=== PATIENT | female | born 1990 | race Caucasian/White ===

== ENCOUNTER → 2017-12-20 | Outpatient (CLI) | payer BC | LOC: LAB 09:56 → LAB SHORT 09:56 | DX: Z34.00 Encounter for supervision of normal first pregnancy, unspecified trimester (principal) | CPT/HCPCS: 87081; 87653 ==

== ENCOUNTER → 2019-09-03 | Outpatient (CLI) | payer OTHER ==
[~2019-09-03] MED LIST: IBUP800 PO; Omeprazole20 M1; Verotin-Gr Cap1 EACH
[2019-09-03 15:48] LABS: BASOPHILS ABSOLUTE AUTO 0.02 K/mm3 (0.00-0.23); BASOPHILS PERCENT AUTO 0 % (0-2); EOSINOPHILS ABSOLUTE AUTO 0.15 K/mm3 (0.00-0.68); EOSINOPHILS PERCENT AUTO 2 % (0-6); Hematocrit 38.2 % (33.0-51.0); Hemoglobin 12.7 g/dL (11.5-16.0); IMMATURE GRAN ABSOLUTE AUTO 0.01 K/mm3 (0.00-0.10); IMMATURE GRAN PERCENT AUTO 0 % (0-1); LYMPHOCYTES ABSOLUTE AUTO 3.55 K/mm3 (0.84-5.20); LYMPHOCYTES PERCENT AUTO 48 % (21-46); MONOCYTES ABSOLUTE AUTO 0.58 K/mm3 (0.16-1.47); MONOCYTES PERCENT AUTO 8 % (4-13); Mean Corpuscular HGB 26.2 pg (26.0-34.0); Mean Corpuscular HGB Conc 33.2 g/dL (31.5-36.5); Mean Corpuscular Volume 79 fL (80-100); Mean Platelet Volume 9.6 fL (9.1-12.4); NEUTROPHILS ABSOLUTE AUTO 3.13 K/mm3 (1.96-9.15); NEUTROPHILS PERCENT AUTO 42 % (41-73); Platelet Count 215 K/mm3 (150-400); RDW Coefficient Variation 13.1 % (11.7-14.2); RDW Standard Deviation 37.3 fL (35.1-46.3); Red Blood Cell Count 4.85 M/mm3 (3.80-5.20); White Blood Cell Count 7.44 K/mm3 (4.00-11.30)
[2019-09-03 16:13] LABS: Alanine Aminotransfer (ALT/SGP 56 U/L (12-78); Albumin, Blood 3.4 g/dL (3.4-5.0); Albumin/Globulin Ratio 1.1 (0.8-1.8); Alk Phos 171 U/L (50-136); Anion Gap 6 mmol/L (6-16); Aspartate Aminotrans (AST/SGOT 18 U/L (12-37); Bilirubin, Total 0.2 mg/dL (0.1-1.0); Blood Urea Nitrogen 11 mg/dL (8-24); Bun/Creatinine Ratio 31.1 (12.0-20.0); CO2, Blood 25 mmol/L (21-32); Calcium, Blood 8.8 mg/dL (8.5-10.1); Chloride, Blood 109 mmol/L (98-108); Creatinine, Blood 0.35 mg/dL (0.40-1.00); Glomerular Filtration Rate >60 (60-); Glucose, Blood 126 mg/dL (70-99); Potassium, Blood 3.6 mmol/L (3.5-5.5); Sodium, Blood 140 mmol/L (136-145); Total Protein, Blood 6.4 g/dL (6.4-8.2)
[2019-09-03 16:16] LABS: Thyroid Stimulating Hormone <0.005 uIU/mL (0.360-4.800)
== END ==
LOC: LAB 14:27 → LAB SHORT 14:27
PROVIDERS: Nurse Practitioner
DX: E05.90 Thyrotoxicosis, unspecified without thyrotoxic crisis or storm (principal); R53.83 Other fatigue
CPT/HCPCS: 80053; 84443; 85025

== ENCOUNTER → 2020-09-24 | Outpatient (CLI) | payer OTHER ==
[~2020-09-24] MED LIST changes: +ASPI81CH PO; +HUMULIN N100 UNIT/5 SC; +IBU800 MG PO
[2020-09-24 15:13] LABS: BASOPHILS ABSOLUTE AUTO 0.04 K/mm3 (0.00-0.23); BASOPHILS PERCENT AUTO 0 % (0-2); EOSINOPHILS ABSOLUTE AUTO 0.13 K/mm3 (0.00-0.68); EOSINOPHILS PERCENT AUTO 1 % (0-6); Hematocrit 39.9 % (33.0-51.0); Hemoglobin 13.2 g/dL (11.5-16.0); IMMATURE GRAN ABSOLUTE AUTO 0.05 K/mm3 (0.00-0.10); IMMATURE GRAN PERCENT AUTO 0 % (0-1); LYMPHOCYTES ABSOLUTE AUTO 2.85 K/mm3 (0.84-5.20); LYMPHOCYTES PERCENT AUTO 23 % (21-46); MONOCYTES ABSOLUTE AUTO 0.78 K/mm3 (0.16-1.47); MONOCYTES PERCENT AUTO 6 % (4-13); Mean Corpuscular HGB 27.3 pg (26.0-34.0); Mean Corpuscular HGB Conc 33.1 g/dL (31.5-36.5); Mean Corpuscular Volume 82 fL (80-100); Mean Platelet Volume 9.7 fL (9.1-12.4); NEUTROPHILS ABSOLUTE AUTO 8.59 K/mm3 (1.96-9.15); NEUTROPHILS PERCENT AUTO 69 % (41-73); Platelet Count 240 K/mm3 (150-400); RDW Coefficient Variation 13.3 % (11.7-14.2); RDW Standard Deviation 39.6 fL (35.1-46.3); Red Blood Cell Count 4.84 M/mm3 (3.80-5.20); White Blood Cell Count 12.44 K/mm3 (4.00-11.30)
== END | disposition home or self-care (01) ==
LOC: LAB SHORT 14:11
PROVIDERS: Obstetrics & Gynecology
DX: O09.91 Supervision of high risk pregnancy, unspecified, first trimester (principal)
CPT/HCPCS: 82950; 85025

== ENCOUNTER 2020-11-17 15:04 | Inpatient (IN) | payer OTHER ==
[~2020-11-17] VITALS: Ht 157.5 cm; Wt 91.8 kg
[~2020-11-17 15:04] MED LIST changes: -ASPI81CH PO; -HUMULIN N100 UNIT/5 SC; -IBU800 MG PO
[2020-11-17 16:06] LABS: BASOPHILS ABSOLUTE AUTO 0.07 K/mm3 (0.00-0.23); BASOPHILS PERCENT AUTO 0 % (0-2); EOSINOPHILS ABSOLUTE AUTO 0.06 K/mm3 (0.00-0.68); EOSINOPHILS PERCENT AUTO 0 % (0-6); Hematocrit 42.5 % (33.0-51.0); Hemoglobin 14.6 g/dL (11.5-16.0); IMMATURE GRAN ABSOLUTE AUTO 0.08 K/mm3 (0.00-0.10); IMMATURE GRAN PERCENT AUTO 0 % (0-1); LYMPHOCYTES ABSOLUTE AUTO 3.14 K/mm3 (0.84-5.20); LYMPHOCYTES PERCENT AUTO 17 % (21-46); MONOCYTES ABSOLUTE AUTO 0.87 K/mm3 (0.16-1.47); MONOCYTES PERCENT AUTO 5 % (4-13); Mean Corpuscular HGB Conc 34.4 g/dL (31.5-36.5); Mean Corpuscular Volume 81 fL (80-100); Mean Platelet Volume 10.1 fL (9.1-12.4); NEUTROPHILS ABSOLUTE AUTO 14.47 K/mm3 (1.96-9.15); NEUTROPHILS PERCENT AUTO 77 % (41-73); Platelet Count 244 K/mm3 (150-400); RDW Coefficient Variation 13.7 % (11.7-14.2); RDW Standard Deviation 40.3 fL (35.1-46.3); Red Blood Cell Count 5.22 M/mm3 (3.80-5.20); White Blood Cell Count 18.69 K/mm3 (4.00-11.30)
[2020-11-17 16:15] LABS: Influenza A, PCR NEGATIVE (NEGATIVE); Influenza B, PCR NEGATIVE (NEGATIVE); Resp Syncytial Virus, PCR NEGATIVE (NEGATIVE); SARS-Cov-2 (COVID-19) PCR, MMC NEGATIVE (NEGATIVE)
[2020-11-17] MEDS ORDERED: ASPI81CH PO (16:24)
[2020-11-17] MEDS ORDERED: HUMULIN N100 UNIT/5 SC (16:26)
[2020-11-18 05:19] LABS: Hematocrit 37.1 % (33.0-51.0); Hemoglobin 12.4 g/dL (11.5-16.0); Mean Corpuscular HGB 27.8 pg (26.0-34.0); Mean Corpuscular HGB Conc 33.4 g/dL (31.5-36.5); Mean Corpuscular Volume 83 fL (80-100); Platelet Count 193 K/mm3 (150-400); RDW Coefficient Variation 13.7 % (11.7-14.2); RDW Standard Deviation 41.4 fL (35.1-46.3); Red Blood Cell Count 4.46 M/mm3 (3.80-5.20); White Blood Cell Count 16.26 K/mm3 (4.00-11.30)
--- NOTE | 2020-11-19 09:00 | NUR ---
RN/LC ROUNDED TO HELP W/ . PT IS EXPERIENCED MOM, STATES LATCHING HAS BEEN PAINFUL. INSTRUCT/DEMO WIDENING LATCH, CORRECT POSITIONING, AND NIPPLE SHAPE AFTER FEEDS. NB AT END OF FEED, SMALL COMPRESSION STRIP ON TIP OF NIPPLE. FURTHER LC OFFERED IF PT DESIRES.
[2020-11-19] MEDS ORDERED: IBU800 MG PO (09:17)
== END 2020-11-19 11:35 | disposition home or self-care (01) | DRG 806 ==
LOC: OBS 15:04 → BC 15:04 → OBS 15:36 → BC 15:38
PROVIDERS: ADMIT Obstetrics & Gynecology
PROC: 10E0XZZ Delivery of Products of Conception, External Approach (ICD-10-PCS; principal; 2020-11-17)
PROC: 0UQG7ZZ Repair Vagina, Via Natural or Artificial Opening (ICD-10-PCS; 2020-11-17)
PROC: 00HU33Z Insertion of Infusion Device into Spinal Canal, Percutaneous Approach (ICD-10-PCS; 2020-11-17)
PROC: 3E0R3BZ Introduction of Anesthetic Agent into Spinal Canal, Percutaneous Approach (ICD-10-PCS; 2020-11-17)
DX: O60.14X0 Preterm labor third trimester with preterm delivery third trimester, not applicable or unspecified (principal); O71.4 Obstetric high vaginal laceration alone; Z37.0 Single live birth; O40.3XX0 Polyhydramnios, third trimester, not applicable or unspecified; O24.424 Gestational diabetes mellitus in childbirth, insulin controlled; O99.824 Streptococcus B carrier state complicating childbirth; Z20.822 Contact with and (suspected) exposure to COVID-19; Z3A.36 36 weeks gestation of pregnancy; O99.284 Endocrine, nutritional and metabolic diseases complicating childbirth; E05.00 Thyrotoxicosis with diffuse goiter without thyrotoxic crisis or storm
CPT/HCPCS: 0241U; 36415; 36416; 51702; 82947; 85025; 85027; 86850; 86900; 86901; A9270; J0290; J1885; J2001; J2210; J2590; J3010; J7120

== ENCOUNTER 2021-11-22 16:46 | Inpatient (IN) | payer BC ==
[~2021-11-22] VITALS: Ht 157.5 cm; Wt 62.9 kg
[~2021-11-22 16:46] MED LIST changes: -METHI10 PO
[2021-11-22 17:17] LABS: Base Excess Venous -13.7 mmol/L; Bicarbonate Venous 15.3 mmol/L (24.0-30.0); PCO2 Venous 28.8 mmHg (38-42); PO2 Venous 98.6 mmHg (38-42)
[2021-11-22 17:18] LABS: pH Blood Venous 7.27 (7.34-7.37)
--- NOTE | 2021-11-22 18:52 | NUR ---
BREAST PUMP BROUGHT UP TO PT AND INSTRUCTIONS WERE GIVEN ON HOW TO USE. BREAST MILK STORAGE BAGS ALSO GIVEN TO PT. DISCUSSED PROPER STORAGE OF BREASTMILK. PT VERBALIZED UNDERSTANDING TO BREAST PUMP INSTRUCTIONS.
[2021-11-22 19:11] LABS: Anion Gap 23 mmol/L (6-16); Blood Urea Nitrogen 9 mg/dL (8-24); CO2, Blood 13 mmol/L (21-32); Calcium, Blood 9.4 mg/dL (8.5-10.1); Chloride, Blood 95 mmol/L (98-108); Glomerular Filtration Rate >60 (60-); Glucose, Blood 462 mg/dL (70-99); Potassium, Blood 3.4 mmol/L (3.5-5.5); Sodium, Blood 131 mmol/L (136-145)
[2021-11-22] MEDS ORDERED: METHI10 PO (21:15)
[2021-11-22 21:43] LABS: Ketones, Urine 4+ (Neg)
--- NOTE | 2021-11-22 23:16 | NUR ---
ASSUMED CARE: PT ARRIVED FROM ED 2/2 DKA; CBG 288 UPON ARRIVAL; 20 MEQ KCL IN NS RUNNING AT 250ML/HR UPON ARRIVAL. INSULIN GTT STARTED UPON ARRIVAL TO ICU AT 1U/HR. A/O X 4, ABLE TO MAKE NEEDS KNOWN, CALL LIGHT WITHIN REACH, MOTHER AT BEDSIDE. PT 1YR & EXCLUSIVELY . HOSPITAL PUMP PROVIDED TO PT BY L&D. PT DECLINES TO PUMP TONIGHT. SEE SHIFT ASSESSMENT FOR FURTHER DETAILS.
[2021-11-23 00:47] LABS: Anion Gap 12 mmol/L (6-16); Blood Urea Nitrogen 5 mg/dL (8-24); Bun/Creatinine Ratio 10.8 (12.0-20.0); CO2, Blood 15 mmol/L (21-32); Chloride, Blood 112 mmol/L (98-108); Creatinine, Blood 0.46 mg/dL (0.40-1.00); Glomerular Filtration Rate >60 (60-); Glucose, Blood 254 mg/dL (70-99); Potassium, Blood 3.3 mmol/L (3.5-5.5); Sodium, Blood 139 mmol/L (136-145)
[2021-11-23 04:34] LABS: BASOPHILS ABSOLUTE AUTO 0.06 K/mm3 (0.00-0.23); BASOPHILS PERCENT AUTO 1 % (0-2); EOSINOPHILS ABSOLUTE AUTO 0.21 K/mm3 (0.00-0.68); EOSINOPHILS PERCENT AUTO 2 % (0-6); Hematocrit 41.5 % (33.0-51.0); Hemoglobin 14.2 g/dL (11.5-16.0); Mean Corpuscular HGB 28.5 pg (26.0-34.0); Mean Corpuscular HGB Conc 34.2 g/dL (31.5-36.5); Mean Corpuscular Volume 83 fL (80-100); Mean Platelet Volume 9.4 fL (9.1-12.4); Platelet Count 233 K/mm3 (150-400); RDW Coefficient Variation 15.1 % (11.7-14.2); RDW Standard Deviation 44.8 fL (35.1-46.3); Red Blood Cell Count 4.98 M/mm3 (3.80-5.20); White Blood Cell Count 10.47 K/mm3 (4.00-11.30)
[2021-11-23 04:35] LABS: IMMATURE GRAN ABSOLUTE AUTO 0.01 K/mm3 (0.00-0.10); IMMATURE GRAN PERCENT AUTO 0 % (0-1); LYMPHOCYTES ABSOLUTE AUTO 5.88 K/mm3 (0.84-5.20); LYMPHOCYTES PERCENT AUTO 56 % (21-46); MONOCYTES ABSOLUTE AUTO 0.61 K/mm3 (0.16-1.47); MONOCYTES PERCENT AUTO 6 % (4-13); NEUTROPHILS PERCENT AUTO 35 % (41-73)
[2021-11-23 04:59] LABS: Alanine Aminotransfer (ALT/SGP 19 U/L (12-78); Albumin, Blood 3.5 g/dL (3.4-5.0); Albumin/Globulin Ratio 1.3 (0.8-1.8); Alk Phos 135 U/L (50-136); Anion Gap 10 mmol/L (6-16); Aspartate Aminotrans (AST/SGOT 9 U/L (12-37); Bilirubin, Total 0.4 mg/dL (0.1-1.0); Blood Urea Nitrogen 3 mg/dL (8-24); Bun/Creatinine Ratio 6.2 (12.0-20.0); CO2, Blood 19 mmol/L (21-32); Calcium, Blood 7.4 mg/dL (8.5-10.1); Chloride, Blood 112 mmol/L (98-108); Creatinine, Blood 0.48 mg/dL (0.40-1.00); Globulin, Blood 2.6 g/dL (2.2-4.0); Glomerular Filtration Rate >60 (60-); Glucose, Blood 131 mg/dL (70-99); Potassium, Blood 3.2 mmol/L (3.5-5.5); Sodium, Blood 141 mmol/L (136-145); Total Protein, Blood 6.1 g/dL (6.4-8.2)
--- NOTE | 2021-11-23 05:20 | NUR ---
END OF SHIFT SUMMARY: CURRENTLY, CBG 128 W/ INSULIN REGULAR GTT @ 1 UNIT/HR. CBGS HAVE RANGED THROUGHOUT THE NIGHT FROM 106 TO 200s. D5 1/2NS INITIATED WHEN CBG <250. KCL IN NS INFUSED THROUGHOUT THE NIGHT W/ VERBAL ORDER FROM MD TO STOP GTT AFTER AM LABS-- K 3.2-- MD ORDERED PO REPLACEMENT. PER MD: GIVE 10U NPH W/ BREAKFAST TRAY, STOP INSULIN REGULAR GTT 1.5 HR AFTER GIVING NPH. LANTUS TO BE GIVEN AT BEDTIME. WILL CONTINUE TO MONITOR UNTIL REPORT HANDED OFF TO ONCOMING RN.
[2021-11-23 07:23] LABS: Anion Gap 11 mmol/L (6-16); Blood Urea Nitrogen 3 mg/dL (8-24); Bun/Creatinine Ratio 7.1 (12.0-20.0); CO2, Blood 19 mmol/L (21-32); Calcium, Blood 7.8 mg/dL (8.5-10.1); Chloride, Blood 109 mmol/L (98-108); Creatinine, Blood 0.43 mg/dL (0.40-1.00); Glomerular Filtration Rate >60 (60-); Glucose, Blood 144 mg/dL (70-99); Potassium, Blood 3.4 mmol/L (3.5-5.5); Sodium, Blood 139 mmol/L (136-145)
--- NOTE | 2021-11-23 08:56 | NUR ---
PT UNABLE TO SWALLOW ORAL POTASSIUM LEFT BY NIGHTSHIFT. PT HAS BEEN ORDERED IV REPLACMENT.
--- NOTE | 2021-11-23 10:00 | NUR ---
INSULIN DRIP AND D5 1/2 STOPPED.
[2021-11-23 13:47] LABS: Anion Gap 15 mmol/L (6-16); Blood Urea Nitrogen 2 mg/dL (8-24); Bun/Creatinine Ratio 4.4 (12.0-20.0); CO2, Blood 15 mmol/L (21-32); Calcium, Blood 8.8 mg/dL (8.5-10.1); Chloride, Blood 105 mmol/L (98-108); Creatinine, Blood 0.46 mg/dL (0.40-1.00); Glomerular Filtration Rate >60 (60-); Glucose, Blood 278 mg/dL (70-99); Potassium, Blood 4.1 mmol/L (3.5-5.5); Sodium, Blood 135 mmol/L (136-145)
--- NOTE | 2021-11-23 16:53 | NUR ---
SUMMARY PT ASSESSMENT WNL BESIDES LABS- SEE CHART. LANTUS GIVEN AT 0900, INSULIN DRIP AND D5 STOPPED AT 1000, THE HIGHEST THE DRIP EVER GOT WAS 3UNITS/HR. PT INSULIN UPDATED TO MEDIUM SCALE AC/HS. INDEPENDENT IN ROOM.
[2021-11-23 19:44] LABS: Anion Gap 9 mmol/L (6-16); Blood Urea Nitrogen 2 mg/dL (8-24); Bun/Creatinine Ratio 3.5 (12.0-20.0); CO2, Blood 23 mmol/L (21-32); Calcium, Blood 9.1 mg/dL (8.5-10.1); Chloride, Blood 102 mmol/L (98-108); Creatinine, Blood 0.57 mg/dL (0.40-1.00); Glomerular Filtration Rate >60 (60-); Glucose, Blood 277 mg/dL (70-99); Potassium, Blood 3.7 mmol/L (3.5-5.5); Sodium, Blood 134 mmol/L (136-145)
--- NOTE | 2021-11-24 | NUR ---
ASSUMED CARE: PT A/O X 4, NAD, ASKING ABOUT GOING HOME. PLAN DISCUSSED TO CONTINUE MONITORING BLOOD SUGARS OVERNIGHT.
[2021-11-24 04:25] LABS: Anion Gap 12 mmol/L (6-16); Blood Urea Nitrogen 5 mg/dL (8-24); CO2, Blood 22 mmol/L (21-32); Calcium, Blood 8.9 mg/dL (8.5-10.1); Chloride, Blood 103 mmol/L (98-108); Glomerular Filtration Rate >60 (60-); Glucose, Blood 281 mg/dL (70-99); Potassium, Blood 3.8 mmol/L (3.5-5.5); Sodium, Blood 137 mmol/L (136-145)
--- NOTE | 2021-11-24 05:50 | NUR ---
SHIFT SUMMARY: NO NOTABLE OVERNIGHT EVENTS. GLUCOSE STILL IN 200S THIS AM ON LABS.
--- NOTE | 2021-11-24 08:01 | NUR ---
ASSUMED CARE: REPORT RECEIVED FROM LOULOU Bear RN. ASSUMED CARE OF THIS PT AT APPROX 0700. ON ASSESSMENT, THIS RN HAS BEEN CALLED TO BEDSIDE BY PT W/ C/O NAUSEA & ONE EPISODE OF EMESIS. SHE STS THIS HAS OCCURED SHORTLY AFTER DRINKING A SMALL AMNT OF WATER. PT's PIV IS PAINFUL ALTHOUGH DOES NOT APPEAR INFILTRATED. ZOFRAN ORDERS SWITCHED FROM IV TO ODT AFTER UPDATING PROVIDER DR NUNEZ. PT's LS ARE CLEAR T/O, ON RA W/ O2 SATS > 92%. MONITOR SHOWS SR AT REST W/ HR 80-90s, HR INCREASED W/ ACTIVITY/ VOMITING, UP TO 130s. BP STABLE. GI COMPLAINTS NOTED ABOVE W/ NAUSEA IMPROVED SLIGHTLY SINCE ZOFRAN PER EMAR. PT VOIDS URINE W/O DIFFICULTY. SKIN CONDITION OVERALL INTACT, PT ABLE TO REPOSITION SELF PRN COMFORT. WILL CONTINUE TO MONITOR & UPDATE NEEDED.
--- NOTE | 2021-11-24 08:30 | NUR ---
DR NUNEZ: PROVIDER AT BEDSIDE TO EVAL PT THIS AM. FEELS THAT IF PT's GLUCOSE LEVEL IS BETTER MANAGED THIS AFTERNOON, SINCE INSULIN GLARGINE DOSE INCREASED THIS AM, THAT SHE WILL LIKELY BE ABLE TO D/C HOME. THE PT IS AWARE OF THIS UPDATE & IS OPTIMISTIC TO GO HOME. THIS RN HAS CONTACTED MEDICAL DIR SANDY ORTEZ FOR ASSISTANCE IN GETTING THE PT ASSIGNED A PRIMARY CARE PROVIDER.
--- NOTE | 2021-11-24 09:59 | NUR ---
Charted on clinicals for CNA2 class.
[2021-11-24 11:57] LABS: Alanine Aminotransfer (ALT/SGP 21 U/L (12-78); Albumin, Blood 4.2 g/dL (3.4-5.0); Albumin/Globulin Ratio 1.3 (0.8-1.8); Alk Phos 151 U/L (50-136); Anion Gap 15 mmol/L (6-16); Aspartate Aminotrans (AST/SGOT 11 U/L (12-37); Bilirubin, Total 0.6 mg/dL (0.1-1.0); Blood Urea Nitrogen 5 mg/dL (8-24); CO2, Blood 18 mmol/L (21-32); Calcium, Blood 9.3 mg/dL (8.5-10.1); Chloride, Blood 103 mmol/L (98-108); Creatinine, Blood 0.56 mg/dL (0.40-1.00); Globulin, Blood 3.3 g/dL (2.2-4.0); Glomerular Filtration Rate >60 (60-); Glucose, Blood 249 mg/dL (70-99); Potassium, Blood 3.6 mmol/L (3.5-5.5); Sodium, Blood 136 mmol/L (136-145); Total Protein, Blood 7.5 g/dL (6.4-8.2)
[2021-11-24 15:26] LABS: Anion Gap 11 mmol/L (6-16); Blood Urea Nitrogen 5 mg/dL (8-24); Bun/Creatinine Ratio 10.6 (12.0-20.0); CO2, Blood 22 mmol/L (21-32); Calcium, Blood 8.5 mg/dL (8.5-10.1); Chloride, Blood 105 mmol/L (98-108); Creatinine, Blood 0.47 mg/dL (0.40-1.00); Glomerular Filtration Rate >60 (60-); Glucose, Blood 179 mg/dL (70-99); Potassium, Blood 3.6 mmol/L (3.5-5.5); Sodium, Blood 138 mmol/L (136-145)
[2021-11-24] MEDS ORDERED: INSULANPEN SC (16:46)
[2021-11-24] MEDS ORDERED: HUMALOG KW100 UNIT/1 SC (16:48)
[2021-11-24] MEDS ORDERED: ONDA4ODT MM (16:49)
--- NOTE | 2021-11-24 17:46 | NUR ---
DISCHARGE TO HOME: Yeyo STOCK & YUSUF AT BEDSIDE THIS AFTERNOON & STATE THE PT CAN GO HOME. SHE HAS RESPONDED WELL TO 1L NS BOLUS W/ RESTING HR 80-90s, INCREASED TO 110s W/ EXERTION & QUICKLY RETURNS TO BASELINE. CHEM PANEL ALSO RECHECKED AFTER BOLUS & HAS IMPROVED W/ ALL LAB VALUES NOW NORMAL - SEE LABS. DISCHARGE INSTRUCTIONS HAVE BEEN REVIEWED W/ THE PT & SHE VERBALIZES UNDERSTANDING OF ALL TEACHING PROVIDED. DISCHARGE PAPERWORK HAS BEEN GIVEN TO PT FOR REFERENCE. PIV & ALL MONITORS HAVE BEEN REMOVED. THIS RN & PT HAVE AMBULATED OUT OF UNIT AT APPROX 1740. ALL BELONGINGS TAKEN OUT WITH PT AT THAT TIME.
== END 2021-11-24 17:45 | disposition home or self-care (01) | DRG 639 ==
LOC: ER 16:46 → ICUW 16:47
PROVIDERS: Family Medicine; Internal Medicine; Physician Assistant; ADMIT Internal Medicine
DX: E11.10 Type 2 diabetes mellitus with ketoacidosis without coma (principal); E05.00 Thyrotoxicosis with diffuse goiter without thyrotoxic crisis or storm; E86.0 Dehydration; E87.6 Hypokalemia; Z53.29 Procedure and treatment not carried out because of patient's decision for other reasons
CPT/HCPCS: 36415; 80048; 80053; 81003; 82010; 82803; 82947; 83036; 84132; 85025; 93005; 93010; 96372; 96374; 99285-25; A9270; G0378; J1650; J1815; J2405; J3480; J7030; J7042

== ENCOUNTER → 2021-11-22 | Outpatient (CLI) | payer OTHER ==
[~2021-11-22] MED LIST changes: +ASPI81CH PO; +HUMULIN N100 UNIT/5 SC; +IBU800 MG PO; +METHI10 PO
[2021-11-22 15:37] LABS: BASOPHILS ABSOLUTE AUTO 0.08 K/mm3 (0.00-0.23); BASOPHILS PERCENT AUTO 1 % (0-2); EOSINOPHILS ABSOLUTE AUTO 0.16 K/mm3 (0.00-0.68); EOSINOPHILS PERCENT AUTO 2 % (0-6); Hematocrit 42.8 % (33.0-51.0); IMMATURE GRAN ABSOLUTE AUTO 0.04 K/mm3 (0.00-0.10); IMMATURE GRAN PERCENT AUTO 0 % (0-1); LYMPHOCYTES ABSOLUTE AUTO 3.32 K/mm3 (0.84-5.20); LYMPHOCYTES PERCENT AUTO 35 % (21-46); MONOCYTES ABSOLUTE AUTO 0.55 K/mm3 (0.16-1.47); MONOCYTES PERCENT AUTO 6 % (4-13); Mean Corpuscular HGB 28.7 pg (26.0-34.0); Mean Corpuscular Volume 82 fL (80-100); Mean Platelet Volume 9.4 fL (9.1-12.4); NEUTROPHILS ABSOLUTE AUTO 5.26 K/mm3 (1.96-9.15); NEUTROPHILS PERCENT AUTO 56 % (41-73); Platelet Count 260 K/mm3 (150-400); RDW Coefficient Variation 15.1 % (11.7-14.2); RDW Standard Deviation 43.7 fL (35.1-46.3); Red Blood Cell Count 5.23 M/mm3 (3.80-5.20); White Blood Cell Count 9.41 K/mm3 (4.00-11.30)
[2021-11-22 15:59] LABS: Alanine Aminotransfer (ALT/SGP 19 U/L (12-78); Albumin, Blood 4.6 g/dL (3.4-5.0); Albumin/Globulin Ratio 1.8 (0.8-1.8); Alk Phos 174 U/L (40-126); Anion Gap 22 mmol/L (6-16); Aspartate Aminotrans (AST/SGOT 12 U/L (12-37); Bilirubin, Total 0.5 mg/dL (0.1-1.0); Blood Urea Nitrogen 10 mg/dL (8-24); Bun/Creatinine Ratio 10.8 (12.0-20.0); CO2, Blood 16 mmol/L (21-32); Calcium, Blood 9.1 mg/dL (8.5-10.1); Chloride, Blood 90 mmol/L (98-108); Creatinine, Blood 0.93 mg/dL (0.40-1.00); Free Thyroxine 1.22 ng/dL (0.70-1.60); Globulin, Blood 2.5 g/dL (2.2-4.0); Glomerular Filtration Rate >60 (60-); Glucose, Blood 491 mg/dL (70-99); Potassium, Blood 3.7 mmol/L (3.5-5.5); Sodium, Blood 128 mmol/L (136-145); Thyroid Stimulating Hormone 0.178 uIU/mL (0.360-4.800); Total Protein, Blood 7.1 g/dL (6.4-8.2)
== END ==
LOC: LAB SHORT 15:33
PROVIDERS: General Practice
DX: R73.9 Hyperglycemia, unspecified (principal); R53.81 Other malaise
CPT/HCPCS: 80053; 83036; 84439; 84443; 84481; 85025

== ENCOUNTER → 2024-07-31 | Outpatient (CLI) | payer BC ==
[~2024-07-31] MED LIST changes: +HUMALOG KW100 UNIT/1 SC; +INSULANPEN SC; +METHI10 PO; +ONDA4ODT MM
[2024-07-31 15:35] LABS: BASOPHILS ABSOLUTE AUTO 0.09 K/mm3 (0.00-0.23); BASOPHILS PERCENT AUTO 1 % (0-2); EOSINOPHILS ABSOLUTE AUTO 0.09 K/mm3 (0.00-0.68); EOSINOPHILS PERCENT AUTO 1 % (0-6); Hematocrit 44.3 % (33.0-51.0); Hemoglobin 15.3 g/dL (11.5-16.0); IMMATURE GRAN ABSOLUTE AUTO 0.01 K/mm3 (0.00-0.10); IMMATURE GRAN PERCENT AUTO 0 % (0-1); LYMPHOCYTES ABSOLUTE AUTO 3.26 K/mm3 (0.84-5.20); LYMPHOCYTES PERCENT AUTO 39 % (21-46); MONOCYTES ABSOLUTE AUTO 0.36 K/mm3 (0.16-1.47); MONOCYTES PERCENT AUTO 4 % (4-13); Mean Corpuscular HGB 27.9 pg (26.0-34.0); Mean Corpuscular HGB Conc 34.5 g/dL (31.5-36.5); Mean Corpuscular Volume 81 fL (80-100); Mean Platelet Volume 8.9 fL (9.1-12.4); NEUTROPHILS PERCENT AUTO 54 % (41-73); Platelet Count 267 K/mm3 (150-400); RDW Coefficient Variation 12.7 % (11.7-14.2); RDW Standard Deviation 36.6 fL (35.1-46.3); Red Blood Cell Count 5.49 M/mm3 (3.80-5.20); White Blood Cell Count 8.31 K/mm3 (4.00-11.30)
[2024-07-31 15:49] LABS: Albumin, Blood 4.4 g/dL (3.4-5.0); Albumin/Globulin Ratio 1.4 (0.8-1.8); Bilirubin, Total 0.6 mg/dL (0.1-1.0); Bun/Creatinine Ratio 7.4 (12.0-20.0); Calcium, Blood 9.2 mg/dL (8.5-10.1); Creatinine, Blood 0.81 mg/dL (0.40-1.00); Globulin, Blood 3.1 g/dL (2.2-4.0); Potassium, Blood 3.6 mmol/L (3.5-5.5); Total Protein, Blood 7.5 g/dL (6.4-8.2)
== END ==
LOC: LAB 15:31 → LAB SHORT 15:31
PROVIDERS: Physician Assistant
DX: R06.02 Shortness of breath (principal); R73.9 Hyperglycemia, unspecified
CPT/HCPCS: 80053; 83036; 84703; 85025